=== PATIENT | female | born 1950 | race Caucasian/White ===

== ENCOUNTER 2018-03-17 11:23 | Observation (INO) | payer MEDICARE, OTHER ==
[~2018-03-17] VITALS: Ht 165.1 cm; Wt 66.0 kg
[~2018-03-17 11:23] MED LIST: DOCU100S PO; LISI-363 PO; LISI20 PO; LORTS PO; METO50 PO; NIFE10CA OR; NOVO7030P2 SQ; NOVOINJ SC; PROC90TA PO; RANI150 NG; RANI150 PO
[2018-03-17 11:31] VITALS: BP 128/79; PULSE 109; RESP 18; TEMP 98.3; O2SAT 99
[2018-03-17] MEDS ORDERED: SODIUM CHLOR 0.9% 1000 ML INJ 1,000 ML IV ONE (11:44)
[2018-03-17] MEDS ORDERED: SODIUM CHLORIDE 0.9% FLUSH 10 ML FLUSH IVF PRN (11:45)
[2018-03-17] MEDS ORDERED: LISI-515 PO (11:48)
[2018-03-17] MEDS ORDERED: NIFE20 PO (11:48)
--- NOTE | 2018-03-17 11:53 | PD ---
HPI Chief Complaint: Fall Time Seen by Provider: 11:38 Travel History International Travel<30 days: No Contact w/Intl Traveler<30days: No Traveled to known affect area: No History of Present Illness HPI Patient is a 67-year-old female presented to the emergency department for evaluation after she had a syncopal episode at home that occurred just prior to arrival. Patient presents with her daughter who states that patient has been prepping for a colonoscopy today. Patient states she felt dizzy prior to the episode. She had completed her bowel prep. She denies any chest pain, shortness of breath prior to the fall. Patient fell forward hitting her head, she denies any headache, dizziness, visual changes, nausea, neck pain now. Past medical history significant for hypertension and a CVA in 2012, patient has residual right-sided weakness. Patient is currently denying any pain. Symptom onset was sudden, symptoms likely exacerbated to not eating and from the bowel prep. Daughter states patient lost control of her bowels when she passed out. PFSH Past Medical History Arthritis: Yes High Cholesterol: Yes Cerebrovascular Accident: Yes (2012, right sided weakness) Diabetes: Yes Endocrine: Yes Hypertension: Yes Implanted Vascular Access Dvce: Yes Neurologic: Yes (Right-sided hemiparesis) Seizures: No ?: Not LMP: years ago Menopausal: Yes : 2 Para: 2 Miscarriage: 0 : 0 Past Surgical History Abdominal Surgery: Yes Body Medical Devices: IVC filter Other Surgery: Yes (sherly filter 01/2013) Social History Alcohol Use: No Tobacco Use: No ( quit 40 years ago) Substance Use: No Allergies-Medications (Allergen,Severity, Reaction): Coded Allergies: aspirin (Verified Allergy, Unknown, 03/17/18) penicillin G (Verified Allergy, Unknown, 03/17/18) Reported Meds & Prescriptions Reported Meds & Active Scripts Active Reported Clonazepam 0.5 Mg Tab 0.5 Mg PO DAILY Atorvastatin (Atorvastatin Calcium) 40 Mg Tab 40 Mg PO HS Ranitidine (Ranitidine HCl) 150 Mg Tab 150 Mg PO DAILY Citalopram (Citalopram Hydrobromide) 20 Mg Tab 20 Mg PO DAILY Nifedipine 20 Mg Cap 60 Mg PO TID Lisinopril 20 Mg Tab 20 Mg PO DAILY Procardia Xl (Nifedipine) 90 Mg Tabcr 60 Mg PO DAILY Novolog Penfill (Insulin Aspart) Inj 10 SC BID Prinivil 20 mg (Lisinopril) 20 Mg Tab 20 Mg PO BID Zantac (Ranitidine HCl) 150 Mg Tab 150 Mg PO BID Zantac 150 Mg Tab (Ranitidine HCl) 150 Mg Tab 150 Mg NG BID Novolin 70/30 (Insulin Human Isoph/Insulin Regular) 100 Units/Ml Inj 30 Units SQ BID Lortab Elixir 7.5/500 Per 15 Ml (Acetaminophen/Hydrocodone Bitart) Elix 10 Ml PO Q6HPRN FOR PAIN Lopressor (Metoprolol Tartrate) 50 Mg Tab 50 Mg PO BID Lisinopril 20 mg (Lisinopril) 20 Mg Tab 20 Mg PO BID Docusate Sodium 150 Mg/15 Ml Liq 100 Mg PO BID Nifedipine 10 Mg Cap 20 Mg OR TID Review of Systems Except as stated in HPI: all other systems reviewed are Neg General / Constitutional: No: Fever Eyes: No: Blurred Vision, Photophobia HENT: Positive: Lightheadedness Cardiovascular: No: Chest Pain or Discomfort, Palpitations Respiratory: No: Shortness of Breath Gastrointestinal: No: Nausea, Abdominal Pain Musculoskeletal: No: Myalgias Neurologic: Positive: Syncope, Incontinence, No: Focal Abnormalities (No new focal abnormalities), Headache, Change in Mentation Physical Exam Narrative GENERAL: Well-developed, well-nourished, alert elderly female. Presenting in no acute distress. SKIN: Warm and dry. Contusion to mid forehead. HEAD: Normocephalic. EYES: Pupils equal and round. No scleral icterus. No injection or drainage. Extraocular movements are intact. ENT: No nasal bleeding or discharge. Mucous membranes pink and moist. NECK: Trachea midline. No JVD. CARDIOVASCULAR: Regular rate and rhythm. RESPIRATORY: No accessory muscle use. Clear to auscultation. Breath sounds equal bilaterally. GASTROINTESTINAL: Abdomen soft, non-tender, nondistended. Hepatic and splenic margins not palpable. MUSCULOSKELETAL: Extremities without clubbing, cyanosis, or edema. Right upper extremity contracture. NEUROLOGICAL: Awake and alert. No obvious cranial nerve deficits. Motor grossly within normal limits. Five out of 5 muscle strength in the arms and legs. Normal speech. PSYCHIATRIC: Appropriate mood and affect; insight and judgment normal. Data Data Last Documented VS Vital Signs Date Time Temp Pulse Resp B/P (MAP) Pulse Ox O2 Delivery O2 Flow Rate FiO2 03/17/18 11:31 98.3 109 18 128/79 (95) 99 Orders Orders Electrocardiogram (03/17/18 11:44) Complete Blood Count With Diff (03/17/18 11:44) Comprehensive Metabolic Panel (03/17/18 11:44) Magnesium (Mg) (03/17/18 11:44) Ckmb (Isoenzyme) Profile (03/17/18 11:44) Troponin I (03/17/18 11:44) Act Partial Throm Time (Ptt) (03/17/18 11:44) Prothrombin Time / Inr (Pt) (03/17/18 11:44) Chest, Single Ap (03/17/18 11:44) Ct Brain W/O Iv Contrast(Rout) (03/17/18 11:44) Ct Cerv Spine W/O Contrast (03/17/18 11:44) Ecg Monitoring (03/17/18 11:44) Iv Access Insert/Monitor (03/17/18 11:44) Oximetry (03/17/18 11:44) Sodium Chloride 0.9% Flush (Ns Flush) (03/17/18 11:45) Sodium Chlor 0.9% 1000 Ml Inj (Ns 1000 M (03/17/18 11:44) Orthostatic Vital Signs (03/17/18 11:44) Mri Brain W&W/O Contrast (03/17/18 ) CKMB (03/17/18 12:08) CKMB% (03/17/18 12:08) Place In Observation (03/17/18 ) Code Status (03/17/18 14:04) Vital Signs (Adult) Q4H (03/17/18 14:04) Activity Oob Ad Shirley (03/17/18 14:04) Container Coordinator / Telemetry [id number] (03/17/18 14:04) Neuro Checks Q4H (03/17/18 14:04) Sodium Chloride 0.9% Flush (Ns Flush) (03/17/18 14:15) Sodium Chloride 0.9% Flush (Ns Flush) (03/17/18 21:00) Complete Blood Count With Diff (03/18/18 06:00) Basic Metabolic Panel (Bmp) (03/18/18 06:00) Electrocardiogram (03/17/18 ) Echo 2d Comp With Doppler (03/17/18 ) Holter Monitor Recording (03/17/18 ) Us Carotid Arteries Comp Bilat (03/17/18 ) Admit Order (Ed Use Only) (03/17/18 14:10) Labs Laboratory Tests Test 03/17/18 12:08 White Blood Count 12.0 TH/MM3 Red Blood Count 4.76 MIL/MM3 Hemoglobin 14.6 GM/DL Hematocrit 41.9 % Mean Corpuscular Volume 88.1 FL Mean Corpuscular Hemoglobin 30.8 PG Mean Corpuscular Hemoglobin Concent 34.9 % Red Cell Distribution Width 12.7 % Platelet Count 312 TH/MM3 Mean Platelet Volume 7.9 FL Neutrophils (%) (Auto) 89.7 % Lymphocytes (%) (Auto) 6.5 % Monocytes (%) (Auto) 3.2 % Eosinophils (%) (Auto) 0.1 % Basophils (%) (Auto) 0.5 % Neutrophils # (Auto) 10.7 TH/MM3 Lymphocytes # (Auto) 0.8 TH/MM3 Monocytes # (Auto) 0.4 TH/MM3 Eosinophils # (Auto) 0.0 TH/MM3 Basophils # (Auto) 0.1 TH/MM3 CBC Comment DIFF FINAL Differential Comment Prothrombin Time 9.8 SEC Prothromb Time International Ratio 1.0 RATIO Activated Partial Thromboplast Time 25.2 SEC Blood Urea Nitrogen 12 MG/DL Creatinine 0.84 MG/DL Random Glucose 123 MG/DL Total Protein 7.2 GM/DL Albumin 3.9 GM/DL Calcium Level 9.1 MG/DL Magnesium Level 2.6 MG/DL Alkaline Phosphatase 71 U/L Aspartate Amino Transf (AST/SGOT) 21 U/L Alanine Aminotransferase (ALT/SGPT) 36 U/L Total Bilirubin 0.7 MG/DL Sodium Level 137 MEQ/L Potassium Level 4.3 MEQ/L Chloride Level 102 MEQ/L Carbon Dioxide Level 22.9 MEQ/L Anion Gap 12 MEQ/L Estimat Glomerular Filtration Rate 67 ML/MIN Total Creatine Kinase 145 U/L Creatine Kinase MB 4.1 NG/ML Troponin I LESS THAN 0.02 NG/ML MDM Medical Decision Making Medical Screen Exam Complete: Yes Emergency Medical Condition: Yes Medical Record Reviewed: Yes Interpretation(s) Last Impressions Head CT 03/17/18 1144 Signed Impressions: CONCLUSION: Previous left hemispheric insult with encephalomalacia in the lateral and rostr al periventricular tissues. Heterogeneous density in the left thalamus is also likely related to remote injury however ongoing pathology in this location is n ot entirely excluded. Further evaluation with MRI would be suggested. Chest X-Ray 03/17/18 1144 Signed Impressions: CONCLUSION: Negative examination. Cervical Spine CT 03/17/18 1144 Signed Impressions: CONCLUSION: 1. No acute abnormality is seen. 2. Degenerative change. Laboratory Tests Test 03/17/18 12:08 White Blood Count 12.0 TH/MM3 Red Blood Count 4.76 MIL/MM3 Hemoglobin 14.6 GM/DL Hematocrit 41.9 % Mean Corpuscular Volume 88.1 FL Mean Corpuscular Hemoglobin 30.8 PG Mean Corpuscular Hemoglobin Concent 34.9 % Red Cell Distribution Width 12.7 % Platelet Count 312 TH/MM3 Mean Platelet Volume 7.9 FL Neutrophils (%) (Auto) 89.7 % Lymphocytes (%) (Auto) 6.5 % Monocytes (%) (Auto) 3.2 % Eosinophils (%) (Auto) 0.1 % Basophils (%) (Auto) 0.5 % Neutrophils # (Auto) 10.7 TH/MM3 Lymphocytes # (Auto) 0.8 TH/MM3 Monocytes # (Auto) 0.4 TH/MM3 Eosinophils # (Auto) 0.0 TH/MM3 Basophils # (Auto) 0.1 TH/MM3 CBC Comment DIFF FINAL Differential Comment Prothrombin Time 9.8 SEC Prothromb Time International Ratio 1.0 RATIO Activated Partial Thromboplast Time 25.2 SEC Blood Urea Nitrogen 12 MG/DL Creatinine 0.84 MG/DL Random Glucose 123 MG/DL Total Protein 7.2 GM/DL Albumin 3.9 GM/DL Calcium Level 9.1 MG/DL Magnesium Level 2.6 MG/DL Alkaline Phosphatase 71 U/L Aspartate Amino Transf (AST/SGOT) 21 U/L Alanine Aminotransferase (ALT/SGPT) 36 U/L Total Bilirubin 0.7 MG/DL Sodium Level 137 MEQ/L Potassium Level 4.3 MEQ/L Chloride Level 102 MEQ/L Carbon Dioxide Level 22.9 MEQ/L Anion Gap 12 MEQ/L Estimat Glomerular Filtration Rate 67 ML/MIN Total Creatine Kinase 145 U/L Creatine Kinase MB 4.1 NG/ML Troponin I LESS THAN 0.02 NG/ML Vital Signs Date Time Temp Pulse Resp B/P (MAP) Pulse Ox O2 Delivery O2 Flow Rate FiO2 03/17/18 11:31 98.3 109 18 128/79 (95) 99 Differential Diagnosis Contusion versus hemorrhage versus cardiac arrhythmia versus vasovagal episode versus metabolic abnormality versus other Narrative Course Patient is a well-appearing 67-year-old female presenting for evaluation after having a syncopal episode prior to arrival. Patient's vital signs are stable, there are no new focal deficits on exam. Patient is residual right-sided hemiparesis from a stroke in 2012. Labs and imaging ordered and pending. Patient is not on any blood thinners, she did have an IVC filter placed in 2012. IV access established, patient placed on telemetry monitoring continuous pulse oximetry. Patient was also seen and evaluated by my attending physician. Labs reviewed CBC with a white count of 12.0 with left shift, chemistry with magnesium level 2.6, CK-MB 4.1, troponin is negative 1 set, coags are unremarkable CT scan of the cervical spine shows no acute abnormality, chest x-rays negative. CT scan of the head which was read by the radiologist shows previous left hemispheric insult with encephalomalacia in the lateral and rostral periventricular tissues. There is a heterogeneous density in the left thalamus which is also likely related to remote injury however ongoing pathology in this location is not entirely excluded. For this reason MRI of the brain with and without contrast has been ordered. Patient and daughter were brought up-to- date with all current findings as well as plan of care. Patient is resting comfortably. MRI is still pending, patient will be admitted to observation, discussed with Dr. Simon who accepted admission. Admit orders placed. Diagnosis Primary Impression: Syncope Qualified Codes: R55 - Syncope and collapse Admitting Information Admitting Physician Requests: Observation Condition: Stable Maria Fernanda Mcguire Mar 17, 2018 11:53
[2018-03-17] MEDS ORDERED: CITA20TA4 PO (12:17)
[2018-03-17] MEDS ORDERED: RANI150T PO (12:17)
[2018-03-17] MEDS ORDERED: ATOR40TA16 PO (12:17)
[2018-03-17] MEDS ORDERED: CLON0.5T PO (12:17)
--- NOTE | 2018-03-17 12:18 | RADRPT ---
EXAM DATE: 03/17/2018 12:03 PM EDT AGE/SEX: 67 years / Female INDICATIONS: Syncope this morning. CLINICAL DATA: This is the patient's initial encounter. Patient reports that signs and symptoms have been present for 1 day and indicates a pain score of 0/10. MEDICAL/SURGICAL HISTORY: Stroke. None. COMPARISON: [facility] – [place], CHEST SINGLE AP, 01/10/2013. . FINDINGS: 2 portable frontal views of the chest show the heart to be normal in size. Lungs are clear. No effusi ons. Chronic elevation of the right hemidiaphragm. Bony structures are unremarkable. CONCLUSION: Negative examination. Electronically signed by: Qamar Hagan MD 03/17/2018 12:17 PM EDT
--- NOTE | 2018-03-17 12:28 | RADRPT ---
EXAM DATE: 03/17/2018 12:22 PM EDT AGE/SEX: 67 years / Female INDICATIONS: Syncope today, fell out of wheelchair. CLINICAL DATA: This is the patient's initial encounter. Patient reports that signs and symptoms have been present for 1 day and indicates a pain score of 3/10. MEDICAL/SURGICAL HISTORY: Cerebrovascular disease. Hypertension. Diabetes mellitus type II. None. RADIATION DOSE: 29.72 CTDI (mGy) COMPARISON: [facility] – [place], CT BRAIN W/O CONTRAST, 01/09/2013. . TECHNIQUE: CT of the head without contrast. Using automated exposure control and adjustment of the mA and/or kV according to patient size, radiation dose was kept as low as reasonably achievable to ob tain optimal diagnostic quality images. FINDINGS: There is encephalomalacia in the left centrum semiovale and elongated lacunar infarction coursing lissette tically adjacent to the lateral body of the left lateral ventricle. Some heterogeneous density in the left thalamus may be dystrophic post previous hemorrhage in this location with underlying mass lesio n or vascular lesion not entirely excluded based upon the appearance. There is no evidence of abnormal extra-axial fluid accumulation. Nothing to suggest acute infarction. Extracranial structures are grossly stable and benign. CONCLUSION: Previous left hemispheric insult with encephalomalacia in the lateral and rostral periventricular tis sues. Heterogeneous density in the left thalamus is also likely related to remote injury however ongo ing pathology in this location is not entirely excluded. Further evaluation with MRI would be suggest ed. Electronically signed by: Otilio Solano MD 03/17/2018 12:27 PM EDT
[2018-03-17 12:39] LABS: AUTOMATED NEUTROPHIL # 10.7 TH/MM3 (1.8-7.7); BASOPHIL # 0.1 TH/MM3 (0-0.2); BASOPHIL % 0.5 % (0.0-2.0); EOSINOPHIL % 0.1 % (0.0-4.0); HEMATOCRIT 41.9 % (35.0-46.0); HEMOGLOBIN 14.6 GM/DL (11.6-15.3); LYMPH % 6.5 % (9.0-44.0); LYMPHOCYTE # 0.8 TH/MM3 (1.0-4.8); MEAN CELL VOLUME 88.1 FL (80.0-100.0); MEAN CORPUSCULAR HEMOGLOBIN 30.8 PG (27.0-34.0); MEAN CORPUSCULAR HGB CONC 34.9 % (32.0-36.0); MEAN PLATELET VOLUME 7.9 FL (7.0-11.0); MONO % 3.2 % (0.0-8.0); MONOCYTE # 0.4 TH/MM3 (0-0.9); NEUT % 89.7 % (16.0-70.0); PLATELET COUNT 312 TH/MM3 (150-450); PROTHROMBIN TIME - PATIENT 9.8 SEC (9.8-11.6); RED BLOOD COUNT 4.76 MIL/MM3 (4.00-5.30); RED CELL DISTRIBUTION WIDTH 12.7 % (11.6-17.2)
--- NOTE | 2018-03-17 12:42 | RADRPT ---
EXAM DATE: 03/17/2018 12:26 PM EDT AGE/SEX: 67 years / Female INDICATIONS: Syncope today. Fall from wheelchair. CLINICAL DATA: This is the patient's initial encounter. Patient reports that signs and symptoms have been present for 1 day and indicates a pain score of 3/10. MEDICAL/SURGICAL HISTORY: Cardiovascular disease. Hypertension. Diabetes mellitus type II. No ne. RADIATION DOSE: 16.45 CTDI (mGy) COMPARISON: No prior exams available for comparison. TECHNIQUE: Contiguous axial images were obtained using helical multirow detector technique. The vol umetric data was post-processed with multiplanar reconstruction in oblique axial, sagittal, and coron al planes. Using automated exposure control and adjustment of the mA and/or kV according to patient s ize, radiation dose was kept as low as reasonably achievable to obtain optimal diagnostic quality brandi ges. FINDINGS: Vertebrae: Normal vertebral body height. Alignment: There is reversal of normal C-spine lordosis. C2-3: The bony spinal canal is normal in size. No evidence of disc bulge or herniation. The neural foramina are bilaterally patent. There is right facet hypertrophy. C3-4: The disc demonstrates decreased height. There is minimal disc bulge. A significant impression on thecal sac is not seen. There is mild facet and uncovertebral hypertrophy. The neural foramina are patent bilaterally. C4-5: The disc demonstrates decreased height. There is mild left disc osteophyte complex causing a m ild impression on the anterior left lateral aspect of the thecal sac. There is mild facet and uncover tebral hypertrophy. There is mild narrowing of the left neural foramina. The right neural foramen carl ears patent. C5-6: The disc demonstrates decreased height. There is mild disc bulge and osteophytic ridging witho ut Siemens stenosis. There is uncovertebral hypertrophy. There is mild narrowing of the left neural f oramina. The right neural foramen appears patent. C6-7: The bony spinal canal is normal in size. No evidence of disc bulge or herniation. The neural foramina are bilaterally patent. C7-T1: The bony spinal canal is normal in size. No evidence of disc bulge or herniation. The neura l foramina are bilaterally patent. CONCLUSION: 1. No acute abnormality is seen. 2. Degenerative change. Electronically signed by: Otilio Moseley MD 03/17/2018 12:41 PM EDT
[2018-03-17 12:53] LABS: ALBUMIN 3.9 GM/DL (3.4-5.0); AST (GOT) 21 U/L (15-37); BICARBONATE 22.9 MEQ/L (21.0-32.0); BLOOD UREA NITROGEN 12 MG/DL (7-18); CALCIUM 9.1 MG/DL (8.5-10.1); CHLORIDE 102 MEQ/L (98-107); CREATININE 0.84 MG/DL (0.50-1.00); GLOMERULAR FILTRATION RATE 67 ML/MIN (>89); GLUCOSE,RANDOM 123 MG/DL (74-106); MAGNESIUM 2.6 MG/DL (1.5-2.5); SODIUM (NA) 137 MEQ/L (136-145)
[2018-03-17 12:54] LABS: ALT (GPT) 36 U/L (10-53)
[2018-03-17 12:57] LABS: ALKALINE PHOSPHATASE 71 U/L (45-117); TOTAL BILIRUBIN ADULT 0.7 MG/DL (0.2-1.0); TOTAL PROTEIN 7.2 GM/DL (6.4-8.2); TROPONIN I LESS THAN 0.02 NG/ML (0.02-0.05)
[2018-03-17] MEDS ORDERED: GADODIAMIDE PF 287 MG/ML 5 ML VIAL (for RAD MRI) IVCONTRAST ONE (14:12)
[2018-03-17] MEDS ORDERED: SODIUM CHLORIDE 0.9% FLUSH 10 ML FLUSH IV FLUSH PRN (14:15)
--- NOTE | 2018-03-17 14:16 | HHI.HP ---
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 Patient presented to the emergency department for evaluation after she had a syncopal episode at home that occurred just prior to arrival. Patient presents with her daughter who states that patient had completed bowel preparation for a colonoscopy today. Patient states she felt dizzy prior to the episode. Patient fell forward hitting her head. Patient's daughter states patient lost control of her bowels when she passed out. Patient denies any headache, dizziness, visual changes, nausea or neck pain at this time. She also denies any chest pain, shortness of breath prior to the fall. Review of Systems Constitutional: COMPLAINS OF: Dizziness Past Family Social History Past Medical History Diet-controlled diabetes mellitus type 2, atrial fibrillation, CVA, pulmonary embolism, sinus bradycardia hyperlipidemia, hypertension, GERD Past Surgical History IVC filter Tonsillectomy Reported Medications Clonazepam 0.5 Mg Tab 0.5 Mg PO DAILY as needed Atorvastatin (Atorvastatin Calcium) 40 Mg Tab 40 Mg PO HS Citalopram (Citalopram Hydrobromide) 20 Mg Tab 20 Mg PO DAILY Lisinopril 20 Mg Tab 20 Mg PO DAILY Procardia Xl (Nifedipine) 60 Mg PO DAILY Prinivil 20 mg (Lisinopril) 20 Mg Tab 20 Mg PO BID Zantac (Ranitidine HCl) 150 Mg Tab 150 Mg PO BID Allergies: Coded Allergies: aspirin (Verified Allergy, Unknown, 03/18/18) penicillin G (Verified Allergy, Unknown, 03/18/18) Family History reviewed and noncontributory Social History Patient is lives at home with 1 daughter and 1 son 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 SKIN: No rashes, ecchymoses or lesions. Cool and dry. HEAD: Atraumatic. Normocephalic. No temporal or scalp tenderness. EYES: Extraocular motions intact. No scleral icterus. No injection or drainage. CARDIOVASCULAR: Regular rate and rhythm RESPIRATORY: Clear to auscultation. Breath sounds equal bilaterally. GASTROINTESTINAL: Abdomen soft, non-tender, nondistended. MUSCULOSKELETAL: Extremities without clubbing, cyanosis, or edema. No joint tenderness, effusion, or edema noted. No calf tenderness. Negative Homans sign bilaterally. NEUROLOGICAL: Awake and alert. right sided weakness residual from CVA 2012. Normal speech. Laboratory Laboratory Tests Test 03/17/18 12:08 White Blood Count 12.0 Red Blood Count 4.76 Hemoglobin 14.6 Hematocrit 41.9 Mean Corpuscular Volume 88.1 Mean Corpuscular Hemoglobin 30.8 Mean Corpuscular Hemoglobin Concent 34.9 Red Cell Distribution Width 12.7 Platelet Count 312 Mean Platelet Volume 7.9 Neutrophils (%) (Auto) 89.7 Lymphocytes (%) (Auto) 6.5 Monocytes (%) (Auto) 3.2 Eosinophils (%) (Auto) 0.1 Basophils (%) (Auto) 0.5 Neutrophils # (Auto) 10.7 Lymphocytes # (Auto) 0.8 Monocytes # (Auto) 0.4 Eosinophils # (Auto) 0.0 Basophils # (Auto) 0.1 CBC Comment DIFF FINAL Differential Comment Prothrombin Time 9.8 Prothromb Time International Ratio 1.0 Activated Partial Thromboplast Time 25.2 Blood Urea Nitrogen 12 Creatinine 0.84 Random Glucose 123 Total Protein 7.2 Albumin 3.9 Calcium Level 9.1 Magnesium Level 2.6 Alkaline Phosphatase 71 Aspartate Amino Transf (AST/SGOT) 21 Alanine Aminotransferase (ALT/SGPT) 36 Total Bilirubin 0.7 Sodium Level 137 Potassium Level 4.3 Chloride Level 102 Carbon Dioxide Level 22.9 Anion Gap 12 Estimat Glomerular Filtration Rate 67 Total Creatine Kinase 145 Creatine Kinase MB 4.1 Troponin I LESS THAN 0.02 Result Diagram: 03/17/18 1208 03/17/18 1208 Imaging Last Impressions Head CT 03/17/18 1144 Signed Impressions: CONCLUSION: Previous left hemispheric insult with encephalomalacia in the lateral and rostr al periventricular tissues. Heterogeneous density in the left thalamus is also likely related to remote injury however ongoing pathology in this location is n ot entirely excluded. Further evaluation with MRI would be suggested. Chest X-Ray 03/17/181143 Signed Impressions: CONCLUSION: Negative examination. Cervical Spine CT 03/17/181143 Signed Impressions: CONCLUSION: 1. No acute abnormality is seen. 2. Degenerative change. Caprini VTE Risk Assessment Caprini VTE Risk Assessment: No/Low Risk (score <= 1) Caprini Risk Assessment Model Point Value = 1 Point Value = 2 Point Value = 3 Point Value = 5 Age 41-60 Minor surgery BMI > 25 kg/m2 Swollen legs Varicose veins or History of unexplained or recurrent spontaneous Oral contraceptives or hormone replacement Sepsis (< 1 month) Serious lung disease, including pneumonia (< 1 month) Abnormal pulmonary function Acute myocardial infarction Congestive heart failure (< 1 month) History of inflammatory bowel disease Medical patient at bed rest Age 61-74 Arthroscopic surgery Major open surgery (> 45 min) Laparoscopic surgery (> 45 min) Malignancy Confined to bed (> 72 hours) Immobilizing plaster cast Central venous access Age >= 75 History of VTE Family history of VTE Factor V Leiden Prothrombin [id number] Lupus anticoagulant Anticardiolipin antibodies Elevated serum homocysteine Heparin-induced thrombocytopenia Other congenital or acquired thrombophilia Stroke (< 1 month) Elective arthroplasty Hip, pelvis, or leg fracture Acute spinal cord injury (< 1 month) Prophylaxis Regimen Total Risk Factor Score Risk Level Prophylaxis Regimen 0-1 Low Early ambulation 2 Moderate Order ONE of the following: *Sequential Compression Device (SCD) *Heparin 5000 units SQ BID 3-4 Higher Order ONE of the following medications: *Heparin 5000 units SQ TID *Enoxaparin/Lovenox 40 mg SQ daily (WT < 150 kg, CrCl > 30 mL/min) *Enoxaparin/Lovenox 30 mg SQ daily (WT < 150 kg, CrCl > 10-29 mL/min) *Enoxaparin/Lovenox 30 mg SQ BID (WT < 150 kg, CrCl > 30 mL/min) AND/OR *Sequential Compression Device (SCD) 5 or more Highest Order ONE of the following medications: *Heparin 5000 units SQ TID (Preferred with Epidurals) *Enoxaparin/Lovenox 40 mg SQ daily (WT < 150 kg, CrCl > 30 mL/min) *Enoxaparin/Lovenox 30 mg SQ daily (WT < 150 kg, CrCl > 10-29 mL/min) *Enoxaparin/Lovenox 30 mg SQ BID (WT < 150 kg, CrCl > 30 mL/min) AND *Sequential Compression Device (SCD) Assessment and Plan Problem List: (1) Syncopal episodes ICD Codes: R55 - Syncope and collapse Plan: 67-year-old female patient with past medical history which includes diabetes mellitus type 2 diet-controlled, atrial fibrillation, 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 Patient presented to the emergency department for evaluation after she had a syncopal episode at home that occurred just prior to arrival. Patient presents with her daughter who states that patient had completed bowel preparation for a colonoscopy today. Patient states she felt dizzy prior to the episode. Patient fell forward hitting her head. Patient's daughter states patient lost control of her bowels when she passed out. Patient denies any headache, dizziness, visual changes, nausea or neck pain at this time. She also denies any chest pain, shortness of breath prior to the fall. Syncopal episode likely related to bowel prep Admit patient to overnight observation Continuous cardiac telemetry monitoring IV fluids for hydration Every 4 hours neuro checks 2D echocardiogram Holter monitor Ultrasound bilateral carotid arteries reviewed and reveals no evidence of flow- limiting carotid stenosis. 17 mm nodule in the right lobe of the thyroid. Elective thyroid sonography is suggested for further evaluation and follow-up. Patient and daughter notified of thyroid nodular recommend outpatient follow- up with PCP CT cervical spine reviewed and reveals no acute abnormality is seen. Degenerative changes. CT the head reviewed and reveals previous left hemispheric insult with encephalomalacia in the lateral and rostral periventricular tissues. Heterogeneous density in the left thalamus is also likely related to remote injury however ongoing pathology in this location is not entirely excluded. Further evaluation with MRI would be suggested MRI reviewed and reveals sequelae of old hemorrhagic injury in the left hemisphere as described. No acute or suspicious findings. Consult gastroenterology -plan for colonoscopy tomorrow Patient may have clear liquids at this time and is NPO after midnight (2) HTN (hypertension) ICD Codes: I10 - Essential (primary) hypertension Plan: Continue patient's home lisinopril 20 mg p.o. daily and nifedipine 60 mg p.o. daily Monitor blood pressure trend (3) Hyperlipidemia ICD Codes: E78.5 - Hyperlipidemia, unspecified Plan: Continue home atorvastatin 40 mg PO nightly Assessment and Plan Patient examined. Assessment and plan formulated with Edwige Linn PA-C. I agree with the above. Edwige Linn Mar 17, 2018 14:16 Hector Simon DO Mar 21, 2018 22:54
--- NOTE | 2018-03-17 14:23 | PD ---
Physical Exam Date Seen by Provider: Mar 17, 2018 Time Seen by Provider: 12:00 Narrative I, Dr. Fox, have reviewed the advance practice practitioner's documentation and am in agreement, met with the patient face to face, made the diagnosis, and the medical decision making was done by me. *My assessment and Findings: Patient seen and evaluated with PA, please see PA note for further details. She has been prepping for a procedure this morning, has been n.p.o., and had a syncopal episode with fall hitting the forehead. She currently is awake and oriented, EKG did not show significant dysrhythmias. Vital signs are stable in the ER she has no focal neurological deficits and other than forehead, no other significant injuries. Laboratory Tests Test 03/17/18 12:08 White Blood Count 12.0 TH/MM3 (4.0-11.0) Neutrophils (%) (Auto) 89.7 % (16.0-70.0) Lymphocytes (%) (Auto) 6.5 % (9.0-44.0) Neutrophils # (Auto) 10.7 TH/MM3 (1.8-7.7) Lymphocytes # (Auto) 0.8 TH/MM3 (1.0-4.8) Random Glucose 123 MG/DL (74-106) Magnesium Level 2.6 MG/DL (1.5-2.5) Estimat Glomerular Filtration Rate 67 ML/MIN (>89) Creatine Kinase MB 4.1 NG/ML (0.5-3.6) Troponin I LESS THAN 0.02 NG/ML Last [address] 03/17/18 1144 Signed Impressions: CONCLUSION: Previous left hemispheric insult with encephalomalacia in the lateral and rostr al periventricular tissues. Heterogeneous density in the left thalamus is also likely related to remote injury however ongoing pathology in this location is n ot entirely excluded. Further evaluation with MRI would be suggested. Chest X-Ray 03/17/18 1144 Signed Impressions: CONCLUSION: Negative examination. Cervical Spine CT 03/17/18 1144 Signed Impressions: CONCLUSION: 1. No acute abnormality is seen. 2. Degenerative change. CAT scans did not show any signs of acute injuries although she does have some chronic changes in the brain of uncertain etiology and is uncertain whether this could be contributing to her syncopal episodes. MRI was ordered for further evaluation. Lab work was fairly unremarkable otherwise. At this point , plan would be to admit her for syncope. Data Data Last Documented VS Vital Signs Date Time Temp Pulse Resp B/P (MAP) Pulse Ox O2 Delivery O2 Flow Rate FiO2 03/17/18 11:31 98.3 109 18 128/79 (95) 99 Orders Orders Electrocardiogram (03/17/18 11:44) Complete Blood Count With Diff (03/17/18 11:44) Comprehensive Metabolic Panel (03/17/18 11:44) Magnesium (Mg) (03/17/18 11:44) Ckmb (Isoenzyme) Profile (03/17/18 11:44) Troponin I (03/17/18 11:44) Act Partial Throm Time (Ptt) (03/17/18 11:44) Prothrombin Time / Inr (Pt) (03/17/18 11:44) Chest, Single Ap (03/17/18 11:44) Ct Brain W/O Iv Contrast(Rout) (03/17/18 11:44) Ct Cerv Spine W/O Contrast (03/17/18 11:44) Ecg Monitoring (03/17/18 11:44) Iv Access Insert/Monitor (03/17/18 11:44) Oximetry (03/17/18 11:44) Sodium Chloride 0.9% Flush (Ns Flush) (03/17/18 11:45) Sodium Chlor 0.9% 1000 Ml Inj (Ns 1000 M (03/17/18 11:44) Orthostatic Vital Signs (03/17/18 11:44) Mri Brain W&W/O Contrast (03/17/18 ) CKMB (03/17/18 12:08) CKMB% (03/17/18 12:08) Place In Observation (03/17/18 ) Code Status (03/17/18 14:04) Vital Signs (Adult) Q4H (03/17/18 14:04) Activity Oob Ad Shirley (03/17/18 14:04) Insulation Cupola Operator / Telemetry [id number] (03/17/18 14:04) Neuro Checks Q4H (03/17/18 14:04) Sodium Chloride 0.9% Flush (Ns Flush) (03/17/18 14:15) Sodium Chloride 0.9% Flush (Ns Flush) (03/17/18 21:00) Complete Blood Count With Diff (03/18/18 06:00) Basic Metabolic Panel (Bmp) (03/18/18 06:00) Electrocardiogram (03/17/18 ) Echo 2d Comp With Doppler (03/17/18 ) Holter Monitor Recording (03/17/18 ) Us Carotid Arteries Comp Bilat (03/17/18 ) Admit Order (Ed Use Only) (03/17/18 14:10) Diet Npo Except Meds (03/17/18 Dinner) Diet Liquid (03/17/18 Dinner) Consult Gastroenterology (03/17/18 ) Labs Laboratory Tests Test 03/17/18 12:08 White Blood Count 12.0 TH/MM3 Red Blood Count 4.76 MIL/MM3 Hemoglobin 14.6 GM/DL Hematocrit 41.9 % Mean Corpuscular Volume 88.1 FL Mean Corpuscular Hemoglobin 30.8 PG Mean Corpuscular Hemoglobin Concent 34.9 % Red Cell Distribution Width 12.7 % Platelet Count 312 TH/MM3 Mean Platelet Volume 7.9 FL Neutrophils (%) (Auto) 89.7 % Lymphocytes (%) (Auto) 6.5 % Monocytes (%) (Auto) 3.2 % Eosinophils (%) (Auto) 0.1 % Basophils (%) (Auto) 0.5 % Neutrophils # (Auto) 10.7 TH/MM3 Lymphocytes # (Auto) 0.8 TH/MM3 Monocytes # (Auto) 0.4 TH/MM3 Eosinophils # (Auto) 0.0 TH/MM3 Basophils # (Auto) 0.1 TH/MM3 CBC Comment DIFF FINAL Differential Comment Prothrombin Time 9.8 SEC Prothromb Time International Ratio 1.0 RATIO Activated Partial Thromboplast Time 25.2 SEC Blood Urea Nitrogen 12 MG/DL Creatinine 0.84 MG/DL Random Glucose 123 MG/DL Total Protein 7.2 GM/DL Albumin 3.9 GM/DL Calcium Level 9.1 MG/DL Magnesium Level 2.6 MG/DL Alkaline Phosphatase 71 U/L Aspartate Amino Transf (AST/SGOT) 21 U/L Alanine Aminotransferase (ALT/SGPT) 36 U/L Total Bilirubin 0.7 MG/DL Sodium Level 137 MEQ/L Potassium Level 4.3 MEQ/L Chloride Level 102 MEQ/L Carbon Dioxide Level 22.9 MEQ/L Anion Gap 12 MEQ/L Estimat Glomerular Filtration Rate 67 ML/MIN Total Creatine Kinase 145 U/L Creatine Kinase MB 4.1 NG/ML Troponin I LESS THAN 0.02 NG/ML MDM Medical Record Reviewed: Yes Supervised Visit with ADITI: Yes Diagnosis Primary Impression: Syncope Qualified Codes: R55 - Syncope and collapse Admitting Information Admitting Physician Requests: Admit Condition: Stable Molina Fox MD Mar 17, 2018 14:23
[2018-03-17 14:30] VITALS: BP 119/65; PULSE 96; RESP 16; O2SAT 97
[2018-03-17] MEDS ORDERED: FLUDROCORTISONE ACETATE 0.1 MG TAB PO SCH (14:30)
--- NOTE | 2018-03-17 14:35 | PD.CONS ---
HPI History of Present Illness This is a 67 year old F with PMH significant for previous CVA with right sided deficits, DM, a-fib, history of PE S/P IVC filter who presented to the ER earlier today after a syncopal episode at the GI office. Pt was planned for colonoscopy this afternoon, she prepped for the colonoscopy yesterday and has not had anything to eat or drink this morning. She hit her head during the fall and is undergoing a MRI of her brain for further work up. During syncopal episode pt also became incontinent of bowels. Indication for colonoscopy was a positive Cologuard test, denies any GI symptoms at this time. Discussed with patient, will plan for colonoscopy tomorrow pending cardiac and neurology work up is negative for acute findings. (Almaz Moraes) PFSH Past Medical History CVA with right sided deficits DM A-fib History of PE S/P IVC filter Past Surgical History IVC filter Tonsillectomy (Almaz Moraes) Coded Allergies: aspirin (Verified Allergy, Unknown, 03/17/18) penicillin G (Verified Allergy, Unknown, 03/17/18) Social History Rare ETOH Denies smoking Denies illicit drug use (Almaz Moraes) Review of Systems Gastrointestinal: DENIES: Abdominal pain, Black stools, Bloody stools, Constipation, Diarrhea, Nausea, Vomiting (Almaz Moraes) GI Exam Vitals I&O Vital Signs Date Time Temp Pulse Resp B/P (MAP) Pulse Ox O2 Delivery O2 Flow Rate FiO2 03/17/18 11:31 98.3 109 18 128/79 (95) 99 Imaging Last Impressions Head CT 03/17/18 1144 Signed Impressions: CONCLUSION: Previous left hemispheric insult with encephalomalacia in the lateral and rostr al periventricular tissues. Heterogeneous density in the left thalamus is also likely related to remote injury however ongoing pathology in this location is n ot entirely excluded. Further evaluation with MRI would be suggested. Chest X-Ray 03/17/18 1144 Signed Impressions: CONCLUSION: Negative examination. Cervical Spine CT 03/17/18 1144 Signed Impressions: CONCLUSION: 1. No acute abnormality is seen. 2. Degenerative change. Laboratory Test 03/17/18 12:08 White Blood Count 12.0 TH/MM3 Red Blood Count 4.76 MIL/MM3 Hemoglobin 14.6 GM/DL Hematocrit 41.9 % Mean Corpuscular Volume 88.1 FL Mean Corpuscular Hemoglobin 30.8 PG Mean Corpuscular Hemoglobin Concent 34.9 % Red Cell Distribution Width 12.7 % Platelet Count 312 TH/MM3 Mean Platelet Volume 7.9 FL Neutrophils (%) (Auto) 89.7 % Lymphocytes (%) (Auto) 6.5 % Monocytes (%) (Auto) 3.2 % Eosinophils (%) (Auto) 0.1 % Basophils (%) (Auto) 0.5 % Neutrophils # (Auto) 10.7 TH/MM3 Lymphocytes # (Auto) 0.8 TH/MM3 Monocytes # (Auto) 0.4 TH/MM3 Eosinophils # (Auto) 0.0 TH/MM3 Basophils # (Auto) 0.1 TH/MM3 CBC Comment DIFF FINAL Differential Comment Prothrombin Time 9.8 SEC Prothromb Time International Ratio 1.0 RATIO Activated Partial Thromboplast Time 25.2 SEC Blood Urea Nitrogen 12 MG/DL Creatinine 0.84 MG/DL Random Glucose 123 MG/DL Total Protein 7.2 GM/DL Albumin 3.9 GM/DL Calcium Level 9.1 MG/DL Magnesium Level 2.6 MG/DL Alkaline Phosphatase 71 U/L Aspartate Amino Transf (AST/SGOT) 21 U/L Alanine Aminotransferase (ALT/SGPT) 36 U/L Total Bilirubin 0.7 MG/DL Sodium Level 137 MEQ/L Potassium Level 4.3 MEQ/L Chloride Level 102 MEQ/L Carbon Dioxide Level 22.9 MEQ/L Anion Gap 12 MEQ/L Estimat Glomerular Filtration Rate 67 ML/MIN Total Creatine Kinase 145 U/L Creatine Kinase MB 4.1 NG/ML Troponin I LESS THAN 0.02 NG/ML Physical Examination HEENT: Normocephalic; atraumatic CHEST: Even/unlabored CARDIAC: RRR ABDOMEN: Soft, nondistended, nontender; bowel sounds active EXTREMITIES: R wrist and arm contracted SKIN: Normal; no rash; no jaundice. FILM FLAT INSPECTOR: Alert and oriented times three. (Almaz Moraes) Assessment and Plan Plan Assessment: - Positive Cologuard- was scheduled for colonoscopy today to further evaluate, underwent prep yesterday and has been NPO since MN last night, had a syncopal episode in the office prior to colonoscopy and was brought to the ER for further work up - Syncopal episode- Carotid US, Holter monitor, 2D echo, and MRI ordered per attending. 1st set of cardiac enzymes negative Plan: Colonoscopy tomorrow Obtain consent Dulcolax x 2 today Clear liquids today NPO after MN Syncopal work up per attending Further recommendations based on clinical course and results of above Pt has been seen and examined by myself and Dr. Reed and this note is written on his behalf (Almaz Moraes) Physician Comments Agree with above, plan for colonoscopy tomorrow. Thank you for the consult. (Len Reed MD) Almaz Moraes Mar 17, 2018 14:35 Len Reed MD Mar 17, 2018 15:11
--- NOTE | 2018-03-17 14:47 | RADRPT ---
EXAM DATE: 03/17/2018 2:15 PM EDT AGE/SEX: 67 years / Female INDICATIONS: . Syncope. CLINICAL DATA: This is the patient's subsequent encounter. Patient reports that signs and symptoms h ave been present for 1 day and indicates a pain score of 0/10. MEDICAL/SURGICAL HISTORY: Cerebrovascular disease. Hypertension. Arthritis. IVC Filter placem ent. COMPARISON: [facility] – [place], CT BRAIN W/O CONTRAST, 01/09/2013. . TECHNIQUE: Multiplanar, multisequence examination of the brain was performed without and with 13 ml O mniscan (gadodiamide) contrast as a single exam dose. FINDINGS: There is encephalomalacia and hemosiderin deposition associated with areas of old infarction in the l eft parietal periventricular white matter, the left thalamus and left basal ganglia. Some curvilinear spontaneous T1 hyperintensity in the thalamus would be consistent with dystrophic microcalcification or other chronic evolutionary process post previous hemorrhage and infarction. There is no suspiciou s mass or vascular process identified. There are tiny lacunar infarcts in the contralateral right bas al ganglia which also appear old. There is nothing to suggest acute infarction. The extracranial stru ctures are benign in intact. CONCLUSION: Sequela of old hemorrhagic injury in the left hemisphere as described. No acute or suspicious finding s. Electronically signed by: Otilio Solano MD 03/17/2018 2:45 PM EDT
--- NOTE | 2018-03-17 15:57 | RADRPT ---
EXAM DATE: 03/17/2018 3:48 PM EDT AGE/SEX: 67 years / Female INDICATIONS: Syncope. CLINICAL DATA: This is the patient's initial encounter. Patient reports that signs and symptoms have been present for 1 day and indicates a pain score of 0/10. MEDICAL/SURGICAL HISTORY: Hypercholesterolemia. Hypertension. Arthritis. Right sided hemipar esis. CVA. Diabetes. Clotting problems. . Rinard filter. Blood transfusions. COMPARISON: No prior [facility] exams available for comparison. No external comparison. VELOCITY PARAMETERS: ICA/CCA Ratio: Right 0.9 , Left 1.2 ICA: Right 81 cm/sec, Left 110 cm/sec CCA: Right 94 cm/sec, Left 90 cm/sec ECA: Right 82 cm/sec, Left 85 cm/sec Vertebral: Right 63 cm/sec antegrade, Left 67 cm/sec antegrade FINDINGS: Right Carotid: No significant stenosis is visualized. The waveforms are within normal limits. Left Carotid: No significant stenosis is visualized. The waveforms are within normal limits. Other: 17 mm solid nodule in the right lobe of the thyroid CONCLUSION: No evidence of flow-limiting carotid stenosis. 17 mm nodule in the right lobe of the thyroid. Elective thyroid sonography suggested for further eval uation and follow-up Electronically signed by: Otilio Solano MD 03/17/2018 3:56 PM EDT
[2018-03-17 16:22] VITALS: BP 125/70; PULSE 87; RESP 20; TEMP 97.9; O2SAT 95
[2018-03-17] MEDS ORDERED: NIFE60TA58 PO (16:51)
[2018-03-17] MEDS ORDERED: clonazePAM 0.5 MG TAB PO PRN (17:00)
[2018-03-17] MEDS ORDERED: POTASSIUM CHLORIDE 10 MEQ CONTROLLED RELEASE TAB PO ONE (17:00)
[2018-03-17] MEDS: INSULIN ASPART SUPPLEMENTAL SCALE SQ SCH ×2 (17:00→21:00)
[2018-03-17] MEDS ORDERED: BISACODYL EC 5 MG TABEC PO ONE ×2 (18:00)
[2018-03-17] MEDS: 1/2 NS + KCL 20 MEQ INJ 1,000 ML IV SCH (18:59)
[2018-03-17 20:00] VITALS: BP 129/74; PULSE 79; RESP 20; TEMP 98.7; O2SAT 94
[2018-03-17] MEDS: SODIUM CHLORIDE 0.9% FLUSH 10 ML FLUSH IV FLUSH SCH (21:00)
[2018-03-17] MEDS ORDERED: ATORVASTATIN 40 MG TAB PO SCH (21:00)
[2018-03-17] MEDS: LISINOPRIL 20 MG TAB PO SCH (22:31)
[2018-03-18] VITALS (7 sets, daily range): BP systolic 102–169; BP diastolic 61–89; PULSE 67–82; RESP 18–20; TEMP 96.9–98.7; O2SAT 94–98
[2018-03-18] MEDS ORDERED: SODIUM CHLORID 0.9% 500 ML IV PRN (02:45)
[2018-03-18] MEDS ORDERED: POVIDONE IODINE 5% (ANTISEPSIS KIT) 4 APPLICATIONS EACH NARE PRN (02:45)
[2018-03-18] MEDS ORDERED: CHLORHEXIDINE GLUCONATE 2 % 1 PACK (2 CLOTHS) TOPICAL PRN (02:45)
[2018-03-18] MEDS: 1/2 NS + KCL 20 MEQ INJ 1,000 ML IV SCH (03:55)
[2018-03-18] MEDS: INSULIN ASPART SUPPLEMENTAL SCALE SQ SCH ×2 (08:00→12:00)
[2018-03-18 08:19] LABS: BICARBONATE 19.3 MEQ/L (21.0-32.0); CALCIUM 8.8 MG/DL (8.5-10.1); CREATININE 0.76 MG/DL (0.50-1.00)
[2018-03-18 08:36] LABS: AUTOMATED NEUTROPHIL # 5.5 TH/MM3 (1.8-7.7); BASOPHIL # 0.1 TH/MM3 (0-0.2); BASOPHIL % 0.8 % (0.0-2.0); EOSINOPHIL # 0.1 TH/MM3 (0-0.4); EOSINOPHIL % 1.2 % (0.0-4.0); HEMATOCRIT 39.4 % (35.0-46.0); HEMOGLOBIN 13.5 GM/DL (11.6-15.3); LYMPH % 14.2 % (9.0-44.0); LYMPHOCYTE # 1.1 TH/MM3 (1.0-4.8); MEAN CELL VOLUME 89.7 FL (80.0-100.0); MEAN CORPUSCULAR HEMOGLOBIN 30.8 PG (27.0-34.0); MEAN CORPUSCULAR HGB CONC 34.3 % (32.0-36.0); MONO % 11.3 % (0.0-8.0); MONOCYTE # 0.8 TH/MM3 (0-0.9); NEUT % 72.5 % (16.0-70.0); PLATELET COUNT 298 TH/MM3 (150-450); RED BLOOD COUNT 4.39 MIL/MM3 (4.00-5.30); RED CELL DISTRIBUTION WIDTH 12.6 % (11.6-17.2); WHITE BLOOD COUNT 7.5 TH/MM3 (4.0-11.0)
[2018-03-18] MEDS ORDERED: CITALOPRAM HYDROBROMIDE 20 MG TAB PO SCH (09:00)
[2018-03-18] MEDS: SODIUM CHLORIDE 0.9% FLUSH 10 ML FLUSH IV FLUSH SCH (09:00)
[2018-03-18] MEDS ORDERED: FAMOTIDINE 20 MG TAB PO SCH (09:00)
[2018-03-18] MEDS ORDERED: NIFEdipine 60 MG SUSTAINED RELEASE TAB PO SCH (09:00)
[2018-03-18] MEDS: LACTATED RINGER'S 1000 ML IV PRN ×2 (09:25→13:35)
--- NOTE | 2018-03-18 10:35 | GIPROC ---
[facility] [address] [facility]. [facility], [address] COLONOSCOPY PROCEDURE REPORT EXAM DATE: 03/18/2018 PATIENT NAME: Mary Morales MR #: [id number] BIRTHDATE: 1950 ENDOSCOPIST: Len Reed MD ORDER #: [id number] [employer]ARM GENERAL MANAGER: Nataliya Johnson RN STATUS: inpatient INDICATIONS: The patient is a 67 yr old female here for a colonoscopy due to Positive Cologaurd PROCEDURE PERFORMED: Colonoscopy with biopsy MEDICATIONS: None and Per Anesthesia. PREP QUALITY: marginal PREP TYPE:GoLytely ESTIMATED BLOOD LOSS: None CONSENT: The patient understands the risks and benefits of the procedure and understands that these risks include, but are not limited to: sedation, allergic reaction, infection, perforation and/or bleeding. Alternative means of evaluation and treatment include, among others: physical exam, x-rays, and/or surgical intervention. The patient elects to proceed with this endoscopic procedure. medical equipment was checked for proper function. Hand hygiene and appropriate measures for infection prevention was taken. After the risks, benefits and alternatives of the procedure were thoroughly explained, Informed consent was verified, confirmed and timeout was successfully executed by the treatment team. A digital exam revealed no abnormalities of the rectum The Pentax [id number] endoscope was introduced through the anus and advanced to the cecum, which was identified by both the appendix and ileocecal valve. The instrument was then slowly withdrawn as the colon was fully examined. COLON FINDINGS: Moderate diverticulosis was noted throughout the entire examined colon. No bleeding was noted from the diverticulosis. A large ulcerated and polypoid shaped pedunculated polyp with a friable surface was found in the sigmoid colon. Multiple biopsies were performed using cold forceps. Retroflexed views revealed internal hemorrhoids and Retroflexed views revealed medium internal hemorrhoids The scope was then completely withdrawn from the patient and the procedure terminated. PROCEDURE WITHDRAWAL TIME:10minutes ADVERSE EVENTS: There were no complications. IMPRESSIONS: 1. Moderate diverticulosis was noted throughout the entire examined colon 2. A large pedunculated polyp was found in the sigmoid colon; covering two folds and ulcerated tip, multiple biopsies were performed using cold forceps to role malignancy. 3. Retroflexed views revealed internal hemorrhoids RECOMMENDATIONS: 1. Await biopsy results. Biopsy results will not be ready for 7-10 days. If you don't hear from us in two weeks, call our office for results. 2. No seeds, nuts and popcorn in diet 3. High fiber diet RECALL: Colonoscopy with endoscopic polypectomy vs surgical resection, pending biopsy results Len Reed MD eSigned: Len Reed MD 03/18/2018 10:35 AM cc: PATIENT NAME: Mary Morales MR#: [id number]
--- NOTE | 2018-03-18 11:09 | HHI.DCPOC ---
Discharge Care Plan Diagnosis: (1) Syncopal episodes (2) HTN (hypertension) Goals to Promote Your Health * To prevent worsening of your condition and complications * To maintain your health at the optimal level Directions to Meet Your Goals Take your medications as prescribed Follow your dietary instruction Follow activity as directed Keep your appointments as scheduled Take your immunizations and boosters as scheduled If your symptoms worsen call your PCP, if no PCP go to Urgent Care Center or Emergency Room Smoking is Dangerous to Your Health. Avoid second hand smoke Call the 24-hour hour crisis hotline for domestic abuse at Edwige Linn Mar 18, 2018 11:09 Hector Simon DO Mar 21, 2018 22:55
--- NOTE | 2018-03-18 11:31 | HHI.DS ---
Discharge Summary Admission Date Mar 17, 2018 at 14:11 Discharge Date: Mar 18, 2018 Admitting Diagnosis Syncopal episode (1) Syncopal episodes Diagnosis: Principal ICD Codes: R55 - Syncope and collapse (2) HTN (hypertension) Diagnosis: Secondary ICD Codes: I10 - Essential (primary) hypertension (3) Hyperlipidemia Diagnosis: Secondary ICD Codes: E78.5 - Hyperlipidemia, unspecified Consultants Dr. Reed, GI Procedures colonoscopy 03/18/[address] 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 Patient presented to the emergency department for evaluation after she had a syncopal episode at home that occurred just prior to arrival. Patient presents with her daughter who states that patient had completed bowel preparation for a colonoscopy today. Patient states she felt dizzy prior to the episode. Patient fell forward hitting her head. Patient's daughter states patient lost control of her bowels when she passed out. Patient denies any headache, dizziness, visual changes, nausea or neck pain at this time. She also denies any chest pain, shortness of breath prior to the fall. CBC/BMP: 03/18/18 0700 03/18/18 0700 Significant Findings Laboratory Tests Test 03/17/18 12:08 03/18/18 07:00 White Blood Count 12.0 TH/MM3 (4.0-11.0) Neutrophils (%) (Auto) 89.7 % (16.0-70.0) 72.5 % (16.0-70.0) Lymphocytes (%) (Auto) 6.5 % (9.0-44.0) Neutrophils # (Auto) 10.7 TH/MM3 (1.8-7.7) Lymphocytes # (Auto) 0.8 TH/MM3 (1.0-4.8) Random Glucose 123 MG/DL (74-106) Magnesium Level 2.6 MG/DL (1.5-2.5) Estimat Glomerular Filtration Rate 67 ML/MIN (>89) 75 ML/MIN (>89) Creatine Kinase MB 4.1 NG/ML (0.5-3.6) Troponin I LESS THAN 0.02 NG/ML Monocytes (%) (Auto) 11.3 % (0.0-8.0) Carbon Dioxide Level 19.3 MEQ/L (21.0-32.0) Imaging Last Impressions Head CT 03/17/18 114 Signed Impressions: CONCLUSION: Previous left hemispheric insult with encephalomalacia in the lateral and rostr al periventricular tissues. Heterogeneous density in the left thalamus is also likely related to remote injury however ongoing pathology in this location is n ot entirely excluded. Further evaluation with MRI would be suggested. Chest X-Ray 03/17/18 114 Signed Impressions: CONCLUSION: Negative examination. Cervical Spine CT 03/17/18 114 Signed Impressions: CONCLUSION: 1. No acute abnormality is seen. 2. Degenerative change. Carotid Artery Ultrasound 03/17/18 0000 Signed Impressions: CONCLUSION: No evidence of flow-limiting carotid stenosis. 17 mm nodule in the right lobe of the thyroid. Elective thyroid sonography sugg asha for further evaluation and follow-up Brain MRI 03/17/18 0000 Signed Impressions: CONCLUSION: Sequela of old hemorrhagic injury in the left hemisphere as described. No acute or suspicious findings. PE at Discharge GENERAL: This is a well-nourished, well-developed patient, in no apparent distress. CARDIOVASCULAR: Regular rate and rhythm RESPIRATORY: Clear to auscultation. Breath sounds equal bilaterally. GASTROINTESTINAL: Abdomen soft, non-tender, nondistended. Normal active bowel sounds MUSCULOSKELETAL: Extremities without clubbing, cyanosis, or edema. NEURO: Alert & Oriented x4 to person, place, time, situation. 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 Patient presented to the emergency department for evaluation after she had a syncopal episode at home that occurred just prior to arrival. Patient presents with her daughter who states that patient had completed bowel preparation for a colonoscopy today. Patient states she felt dizzy prior to the episode. Patient fell forward hitting her head. Patient's daughter states patient lost control of her bowels when she passed out. Patient denies any headache, dizziness, visual changes, nausea or neck pain at this time. She also denies any chest pain, shortness of breath prior to the fall. Syncopal episode likely related to bowel prep/dehydration Admit patient to observation Continuous cardiac telemetry monitoring IV fluids for hydration Every 4 hours neuro checks 2D echocardiogram: Normal left ventricular size. Wall thickness is normal. The left ventricular systolic function is grossly normal on limited imaging. No mitral valve stenosis. Trace MR.The left ventricular systolic function is normal with an estimated ejection fraction in the range of 60-65%. There is mild tricuspid valve regurgitation. The estimated pulmonary arterial pressure is 33 mmHg. Holter monitor. Results not yet available. Patient needs to follow up with PCP for results Ultrasound bilateral carotid arteries reviewed and reveals no evidence of flow- limiting carotid stenosis. 17 mm nodule in the right lobe of the thyroid. Elective thyroid sonography is suggested for further evaluation and follow-up. Patient and daughter notified of thyroid nodular recommend outpatient follow- up with PCP CT cervical spine reviewed and reveals no acute abnormality is seen. Degenerative changes. CT the head reviewed and reveals previous left hemispheric insult with encephalomalacia in the lateral and rostral periventricular tissues. Heterogeneous density in the left thalamus is also likely related to remote injury however ongoing pathology in this location is not entirely excluded. Further evaluation with MRI would be suggested MRI reviewed and reveals sequelae of old hemorrhagic injury in the left hemisphere as described. No acute or suspicious findings. Consult gastroenterology Colonoscopy completed 03/18/18 Impression: 1. Moderate diverticulosis was noted throughout the entire examined colon 2. A large pedunculated polyp was found in the sigmoid colon; covering two folds and ulcerated tip, multiple biopsies were performed using cold forceps to role malignancy. 3. Retroflexed views revealed internal hemorrhoids Recommendations per GI: 1. Await biopsy results. Biopsy results will not be ready for 7-10 days. If you don't hear from us in two weeks, call our office for results. 2. No seeds, nuts and popcorn in diet 3. High fiber diet Colonoscopy with endoscopic polypectomy vs surgical resection, pending biopsy results HTN (hypertension) Continue patient's home lisinopril 20 mg p.o. daily and nifedipine 60 mg p.o. daily Monitor blood pressure trend Hyperlipidemia Continue home atorvastatin 40 mg PO nightly Pt Condition on Discharge: Stable Discharge Disposition: Discharge Home Discharge Instructions DIET: Follow Instructions for: High Fiber Diet Additional Diet Instructions: No seeds, nuts or popcorn in diet Activities you can perform: Regular-No Restrictions Follow up Referrals: Gastroenterology - 2 Weeks with Charanjit Hayes MD PCP Follow-up - [address] Gomez Continued Medications: Atorvastatin (Atorvastatin) 40 Mg Tab 40 MG PO HS for Cholesterol Management, #30 TAB 0 Refills Citalopram (Citalopram) 20 Mg Tab 20 MG PO DAILY for Control Depression, #30 TAB 0 Refills Clonazepam (Clonazepam) 0.5 Mg Tab 0.5 MG PO DAILY PRN for ANXIETY, #60 TAB 0 Refills Lisinopril (Lisinopril) 20 Mg Tab 20 MG PO BID, #30 TAB 0 Refills Nifedipine ER 24 HR (Nifedipine ER 24 HR) 60 Mg Tab 60 MG PO DAILY, #30 TAB 0 Refills Ranitidine (Ranitidine) 150 Mg Tab 150 MG PO DAILY for Heartburn Management, #30 TAB 0 Refills Additional Information Patient examined. Assessment and plan formulated with Edwige Linn PA-C. I agree with the above. Edwige Linn Mar 18, 2018 11:31 Hector Simon DO Mar 21, 2018 22:55
[2018-03-18] MEDS ORDERED: LIDOCAINE HCL 1% PF 5 ML SYRINGE OTHER ONE (12:00)
[2018-03-18] MEDS ORDERED: PROPOFOL 200 MG/20 ML AMP IV ONE (12:00)
[2018-03-18] MEDS ORDERED: LACTATED RINGER'S 1000 ML INJ 1,000 ML IV ONE (12:00)
[2018-03-18] MEDS: LISINOPRIL 20 MG TAB PO SCH (13:24)
--- NOTE | 2018-03-18 15:35 | EKG ---
Date Performed: 03/17/2018 Time Performed: 11:46:58 PTAGE: 67 years EKG: Sinus rhythm WITH FIRST DEGREE AV BLOCK LOW QRS VOLTAGE IN PRECORDIAL LEADS SEPTAL MYOCARDIAL INFARCTION Since pr evious tracing, no significant change noted ABNORMAL ECG PREVIOUS TRACING : 03/23/2013 01.55 DOCTOR: Ingrid Ivy Interpretating Date/Time 03/18/2018 15:33:44
--- NOTE | 2018-03-18 16:17 | ECHRPT ---
Indication: SYNCOPE CONCLUSIONS Normal left ventricular size. Wall thickness is normal. The left ventricular systolic function is grossly normal on limited imaging. No mitral valve stenosis. Trace MR.The left ventricular systolic function is normal with an estimated ejection fraction in the range of 60-65%. There is mild tricuspid valve regurgitation. The estimated pulmonary arterial pressure is 33 mmHg. BP: 158 / 89 HR: 67 Rhythm: Sinus MEASUREMENTS (Male / Female) Normal Values Technical Quality:Fair 2D ECHO LV Diastolic Diameter PLAX 4.9 cm 4.2 - 5.9 / 3.9 - 5.3 cm LV Systolic Diameter PLAX 2.6 cm IVS Diastolic Thickness 0.9 cm 0.6 - 1.0 / 0.6 - 0.9 cm LVPW Diastolic Thickness 0.9 cm 0.6 - 1.0 / 0.6 - 0.9 cm LV Relative Wall Thickness 0.4 RV Internal Dim ED PLAX 1.4 cm LVOT Diameter 2.1 cm Aortic Root Diameter 2.6 cm LA Systolic Diameter LX 2.5 cm 3.0 - 4.0 / 2.7 - 3.8 cm M-MODE AV Cusp Separation MM 1.8 cm DOPPLER AV Peak Velocity 127.0 cm/s AV Peak Gradient 6.5 mmHg AV Mean Gradient 4.0 mmHg AV Velocity Time Integral 26.1 cm LVOT Peak Velocity 53.4 cm/s LVOT Peak Gradient 1.1 mmHg LVOT Velocity Time Integral 8.2 cm AV Area Cont Eq vti 1.1 cm AV Area Cont Eq pk 1.5 cm Mitral E Point Velocity 5.9 cm/s TR Peak Velocity 222.0 cm/s TR Peak Gradient 19.7 mmHg PV Peak Velocity 63.2 cm/s PV Peak Gradient 1.6 mmHg FINDINGS LEFT VENTRICLE Normal left ventricular size. Wall thickness is normal. The left ventricular systolic function is normal with an estimated ejection fraction in the range of 60-65%. RIGHT VENTRICLE Normal right ventricular size and systolic function. LEFT ATRIUM The left atrial size is normal. RIGHT ATRIUM The right atrial size is normal. ATRIAL SEPTUM No atrial level shunt is demonstrated by color flow Doppler interrogation. AORTA The aortic root and proximal ascending aorta are normal in size on limited imaging. MITRAL VALVE Structurally normal mitral valve. No mitral valve stenosis. Trace MR. AORTIC VALVE Trileaflet aortic valve. No aortic valve stenosis or regurgitation. TRICUSPID VALVE There is mild tricuspid valve regurgitation. The estimated pulmonary arterial pressure is 33 mmHg. PULMONARY VALVE No pulmonary valve regurgitation or stenosis. VESSELS The inferior vena cava is normal in size. PERICARDIUM No pericardial effusion. Acosta Echeverria MD, FACC (Electronically Signed) Final Date:18 March 2018 16:16
--- NOTE | 2018-03-21 15:15 | HM ---
Date Performed: 03/17/2018 Time Performed: 21:28:00 HOOKUP DATE: 03/17/18 09:28:00 PM Wed ANALYSIS START TIME: 03/17/2018 9:33:00 PM ANALYSIS END TIME: 03/18/2018 4:12:53 PM PATIENT AGE: 67 PATIENT HEIGHT PATIENT WEIGHT DRUG LIST PATIENT DIAGNOSIS: HEAD INJURY TEST NARRATIVE: The patient's average heart rate was 74 BPM. Heart rates greater than 120 B PM were noted < 1% of the time. No episodes of bradycardia were noted. No pauses exceeding 2.0 s econds were noted. 4 ventricular ectopics, which represented < 1% of the total beat count, were n oted. The highest ventricular ectopic frequency occurred from 05:00 AM to 06:00 AM Stephanie. During this time 2 VE(s) occurred. Ventricular ectopics were observed as 4 isolated beat(s) only. No couplets or runs were noted. 12 supraventricular ectopics, which represented < 1% of the total beat count, were noted. The highest supraventricular ectopic frequency occurred from 01:00 PM to 02:00 PM Stephanie. During this time 4 SVE(s) occurred. No episodes of ST depression (defined as -1.0 mm or more) we re noted in channel 1. No episodes of ST depression (defined as -1.0 mm or more) were noted in chann el 2. No episodes of ST depression (defined as -1.0 mm or more) were noted in channel 3. TEST INTERPRETATION: 1. PREDOMINANT UNDERLYING RHYTHM IS Sinus rhythm 2. OCCASIONAL PREMATURE ATRIAL COMPLEXES AND OCCASIONAL PREMATURE VENTRICULAR COMPLEXES 3. NO PAUSES GREATER THAN 2 SEC NOTED 4. NO EPISODES OF ATRIAL FIBRILLATION, SUPRAVENTRICULAR , OR VENTRICULAR TA CHYARRHYTHMIAS NOTED. Signed by : Andi Cruz
== END 2018-03-18 18:44 | disposition home or self-care (01) ==
LOC: NEPC 11:23 → NEDA 14:11 → NEPHCDU 16:05
PROVIDERS: ADMIT Hospitalist; ATTEND Hospitalist
DX: R55 Syncope and collapse (principal); C18.7 Malignant neoplasm of sigmoid colon; K57.30 Diverticulosis of large intestine without perforation or abscess without bleeding; K64.8 Other hemorrhoids; R42 Dizziness and giddiness; W19.XXXA Unspecified fall, initial encounter; I69.351 Hemiplegia and hemiparesis following cerebral infarction affecting right dominant side; I10 Essential (primary) hypertension; M19.90 Unspecified osteoarthritis, unspecified site; R53.1 Weakness; E11.9 Type 2 diabetes mellitus without complications; Z79.899 Other long term (current) drug therapy; Z79.4 Long term (current) use of insulin; G93.89 Other specified disorders of brain; Z86.711 Personal history of pulmonary embolism; I48.91 Unspecified atrial fibrillation; R00.1 Bradycardia, unspecified; K21.9 Gastro-esophageal reflux disease without esophagitis; E78.5 Hyperlipidemia, unspecified; I44.0 Atrioventricular block, first degree; R94.31 Abnormal electrocardiogram [ECG] [EKG]
CPT/HCPCS: 00811; 45380; 70450; 70553; 71045; 72125; 80048; 80053; 82550; 82552; 82948; 83735; 84484; 85025; 85610; 85730; 88305; 93005; 93225; 93226; 93306; 93880; 96360; 96361; 99285; A9579; G0378; J7030; J7120